=== PATIENT | male | born 1945 | race Caucasian/White ===

== ENCOUNTER 2019-02-11 09:56 | Inpatient (IN) | payer OTHER ==
[~2019-02-11] VITALS: Ht 182.9 cm; Wt 117.1 kg
[2019-02-11 10:33] LABS: BASOPHILS % (AUTO) 1.2 % (0.0-5.0); EOSINOPHILS % (AUTO) 3.9 % (0.0-8.0); HEMATOCRIT 45.7 % (42-54); LYMPHOCYTES % (AUTO) 12.6 % (21.0-51.0); MEAN CORPUSCULAR HEMOGLOBIN 30.1 pg (27.0-33.0); MEAN CORPUSCULAR HGB CONC 32.8 g/dL (32.0-36.0); MEAN CORPUSCULAR VOLUME 91.9 fL (79-99); MONOCYTES % (AUTO) 9.6 % (3.0-13.0); NEUTROPHILS % (AUTO) 72.7 % (40.0-77.0); PLATELET COUNT (AUTO) 171 K/uL (130-400); RED BLOOD CELL COUNT(AUTO) 4.97 MIL/uL (4.50-6.20); RED CELL DISTRIBUTION WIDTH 14.3 % (11.0-15.5); WHITE BLOOD COUNT (AUTO) 7.9 K/uL (4.8-10.8)
[2019-02-11 10:42] LABS: CREATININE 1.7 mg/dL (0.5-1.5); POTASSIUM 3.7 mmol/L (3.5-5.1)
[2019-02-11 10:45] LABS: INR 1.46 (0.85-1.15); PARTIAL THROMBOPLASTIN TIME 35.6 SEC (26.3-35.5); PROTHROMBIN TIME 15.2 SEC (9.6-11.6)
[2019-02-11 10:48] LABS: ALBUMIN 3.2 g/dL (3.5-5.0); BILIRUBIN,TOTAL 1.3 mg/dL (0.2-1.0); TOTAL PROTEIN, SERUM 6.3 g/dL (6.0-8.3)
[2019-02-11 10:53] LABS: TROPONIN I 0.1 ng/mL (0.00-0.06)
[2019-02-11 11:02] LABS: B-TYPE NATRIURETIC PEPTIDE 815 pg/mL (0-100)
[2019-02-11] MEDS ORDERED: FUROSEMIDE 10 MG/ML 2ML VIAL ONE (11:40)
[2019-02-11] MEDS ORDERED: ASPIRIN 325 MG TABLET ONE (11:40)
[2019-02-11] MEDS ORDERED: METOPROLOL TARTRATE 25 MG TAB ONE (13:21)
[2019-02-11] MEDS ORDERED: MORPHINE SULFATE 2 MG/ML 1ML SYG IV PRN (14:00)
[2019-02-11] MEDS ORDERED: HYDRALAZINE HCL 20 MG/ML VIAL IV PRN (14:00)
[2019-02-11] MEDS ORDERED: ONDANSETRON HCL 4 MG/2 ML VIAL IV PRN (14:00)
[2019-02-11] MEDS ORDERED: ACETAMINOPHEN 325 MG TAB PO PRN (14:00)
[2019-02-11] MEDS ORDERED: INSULIN HUMULIN R 100 UNIT/ML 3ML ONE (14:03)
[2019-02-11 16:55] VITALS: BP 137/103
--- NOTE | 2019-02-11 17:00 | NUR ---
ADMISSION RECEIVED PT FROM ER, AMBULATING FROM GURNEY TO BED, GAIT STEADY AND STRONG WITH STAND BY ASSIST, A&OX3, CALM COOPERATIVE AND DOES NOT APPEAR TO BE IN ANY DISTRESS NOR ANY NEURO DEFICITS. PT DENIES PAIN, DIZZINESS OR NAUSEA BUT DOES C/O DYSPNEA ON EXERTION. PT SITTING UP AT BEDSIDE, RESTING COMFORTABLY, CALL LIGHT WITHIN REACH.
[2019-02-11 19:00] VITALS: BP 125/84
--- NOTE | 2019-02-11 19:20 | NUR ---
Received report cardiology was consulted today and pt. is for stress test tomorrow.
[2019-02-11] MEDS: FUROSEMIDE 10 MG/ML 4ML VIAL IVP SCH (20:25)
[2019-02-11] MEDS: METOPROLOL TARTRATE 25 MG TAB PO SCH (20:26)
[2019-02-11] MEDS: INSULIN HUMULIN R 100 UNIT/ML 3ML SQ SCH (20:37)
[2019-02-11] MEDS ORDERED: FUROSEMIDE 40 MG TABLET PO SCH (21:00)
[2019-02-11 21:15] LABS: TROPONIN I 0.11 ng/mL (0.00-0.06)
[2019-02-11] MEDS ORDERED: LORAZEPAM 2 MG/ML 1 ML VIAL IVP PRN (21:15)
--- NOTE | 2019-02-11 21:40 | NUR ---
[facility] spoke to pt. regarding Halcion which is not available at this time and pt. agreed to have Ativan instead ,to keep him sleep.
[2019-02-11 23:00] VITALS: BP 105/73
--- NOTE | 2019-02-11 23:23 | NUR ---
Pt. said he found his sleeping pill in his bag and wants to know if its okay for him to take it.[facility] was called and notified and he said its okay.
--- NOTE | 2019-02-12 | NUR ---
Pt. kept NPO at this time,demonstrated understanding well.
[2019-02-12 02:22] LABS: HEMATOCRIT 47.5 % (42-54); MEAN CORPUSCULAR HEMOGLOBIN 29.9 pg (27.0-33.0); MEAN CORPUSCULAR VOLUME 90.8 fL (79-99); NUCLEATED RED BLOOD CELLS 0.1 % (0.0-0.19); PLATELET COUNT (AUTO) 154 K/uL (130-400); RED BLOOD CELL COUNT(AUTO) 5.23 MIL/uL (4.50-6.20); RED CELL DISTRIBUTION WIDTH 14.4 % (11.0-15.5); WHITE BLOOD COUNT (AUTO) 7.4 K/uL (4.8-10.8)
[2019-02-12 02:40] LABS: CREATININE 1.7 mg/dL (0.5-1.5)
[2019-02-12 02:55] LABS: TROPONIN I 0.08 ng/mL (0.00-0.06)
[2019-02-12 03:00] VITALS: BP 109/66
[2019-02-12] MEDS: INSULIN HUMULIN R 100 UNIT/ML 3ML SQ SCH ×4 (06:07→21:00)
[2019-02-12] MEDS: REGADENOSON 0.4 MG/5 ML PF SYG IVP SCH ×2 (06:30→15:51)
[2019-02-12] MEDS ORDERED: RIVA20TA PO (07:05)
[2019-02-12] MEDS ORDERED: LISI1TAB13 PO (07:05)
[2019-02-12] MEDS ORDERED: [UNRECOGNIZED DRUG - OTHER] PO (07:05)
[2019-02-12] MEDS ORDERED: [UNRECOGNIZED DRUG - OTHER] PO (07:05)
[2019-02-12] MEDS ORDERED: [UNRECOGNIZED DRUG - OTHER] PO ×2 (07:05)
[2019-02-12] MEDS ORDERED: METF850T PO (07:05)
[2019-02-12] MEDS ORDERED: SIMV20TA6 PO (07:05)
[2019-02-12] MEDS ORDERED: TRIA0.252 PO (07:07)
[2019-02-12 07:25] VITALS: BP 121/71
[2019-02-12] MEDS ORDERED: ENOXAPARIN SODIUM 30 MG/0.3 ML SQ SCH (09:00)
[2019-02-12] MEDS: METOPROLOL TARTRATE 25 MG TAB PO SCH ×2 (09:00→20:19)
[2019-02-12] MEDS: FAMOTIDINE/PF 20 MG/2 ML VIAL IV SCH (09:20)
[2019-02-12] MEDS: ASPIRIN 325 MG TABLET PO SCH (09:20)
[2019-02-12] MEDS: FUROSEMIDE 10 MG/ML 4ML VIAL IVP SCH ×2 (09:21→20:17)
[2019-02-12 11:08] VITALS: BP 139/94
[2019-02-12 11:24] LABS: TROPONIN I 0.1 ng/mL (0.00-0.06)
--- NOTE | 2019-02-12 15:02 | NUR ---
DC PLAN VISITED WITH PATIENT. PATIENT LIVES WITH SPOUSE. INDEPENDENT ABLE TO PERFORM ADL'S. PATIENT HAS NO SERVICES OR DME'S. FEELS SAFE TO RETURN HOME. GOT PALLAVI PER MEDICAL RECORDS SO THAT RECORDS CAN BE EMAILED TO PATIENT AFTER DISCHARGE. PALLAVI SIGNED AND ON CHART. Addendum: 02/12/19 at 1503 by SETH JI RN CM Amended: Links added.
[2019-02-12 15:34] VITALS: BP 144/74
[2019-02-12 20:13] VITALS: BP 131/85
[2019-02-13] VITALS: BP 114/67
[2019-02-13 03:30] VITALS: BP 131/56
[2019-02-13 03:59] LABS: MEAN CORPUSCULAR HEMOGLOBIN 30.5 pg (27.0-33.0); MEAN CORPUSCULAR HGB CONC 33.3 g/dL (32.0-36.0); MEAN CORPUSCULAR VOLUME 91.6 fL (79-99); NUCLEATED RED BLOOD CELLS 0.1 % (0.0-0.19); PLATELET COUNT (AUTO) 184 K/uL (130-400); RED BLOOD CELL COUNT(AUTO) 5.02 MIL/uL (4.50-6.20); RED CELL DISTRIBUTION WIDTH 14.3 % (11.0-15.5); WHITE BLOOD COUNT (AUTO) 8.1 K/uL (4.8-10.8)
[2019-02-13 04:03] LABS: HEMOGLOBIN A1C 7.6 % (4.0-6.0)
[2019-02-13 04:18] LABS: B-TYPE NATRIURETIC PEPTIDE 334 pg/mL (0-100)
[2019-02-13 04:23] LABS: CREATININE 1.6 mg/dL (0.5-1.5); POTASSIUM 3.1 mmol/L (3.5-5.1); TROPONIN I 0.08 ng/mL (0.00-0.06)
[2019-02-13] MEDS: FUROSEMIDE 10 MG/ML 4ML VIAL IVP SCH (04:32)
[2019-02-13] MEDS: INSULIN HUMULIN R 100 UNIT/ML 3ML SQ SCH ×4 (05:38→21:00)
[2019-02-13 07:30] VITALS: BP 144/80
[2019-02-13 09:42] LABS: HEMATOCRIT 50.4 % (42-54); MEAN CORPUSCULAR HGB CONC 32.5 g/dL (32.0-36.0); MEAN CORPUSCULAR VOLUME 92.2 fL (79-99); NUCLEATED RED BLOOD CELLS 0.1 % (0.0-0.19); PLATELET COUNT (AUTO) 200 K/uL (130-400); RED BLOOD CELL COUNT(AUTO) 5.47 MIL/uL (4.50-6.20); RED CELL DISTRIBUTION WIDTH 14.7 % (11.0-15.5); WHITE BLOOD COUNT (AUTO) 8.6 K/uL (4.8-10.8)
[2019-02-13] MEDS: ASPIRIN 325 MG TABLET PO SCH (09:45)
[2019-02-13] MEDS: SPIRONOLACTONE 25 MG TAB PO SCH (09:46)
[2019-02-13] MEDS: LISINOPRIL 2.5 MG TABLET PO SCH (09:46)
[2019-02-13] MEDS: METOPROLOL TARTRATE 25 MG TAB PO SCH ×2 (09:46→19:38)
[2019-02-13] MEDS: FAMOTIDINE/PF 20 MG/2 ML VIAL IV SCH (09:47)
[2019-02-13] MEDS: POTASSIUM CHLORIDE 20 MEQ ERTAB PO SCH ×2 (09:47→16:04)
[2019-02-13 09:49] LABS: CREATININE 1.5 mg/dL (0.5-1.5); POTASSIUM 3.2 mmol/L (3.5-5.1)
[2019-02-13 10:00] LABS: INR 1.18 (0.85-1.15); PARTIAL THROMBOPLASTIN TIME 27.6 SEC (26.3-35.5); PROTHROMBIN TIME 12.3 SEC (9.6-11.6)
[2019-02-13 11:44] VITALS: BP 130/89
[2019-02-13 15:17] VITALS: BP 128/73
[2019-02-13] MEDS ORDERED: POTASSIUM CHLORIDE 20 MEQ ERTAB PO ONE (16:00)
[2019-02-13 20:26] VITALS: BP 139/73
[2019-02-14] VITALS (7 sets, daily range): BP systolic 110–136; BP diastolic 64–92
[2019-02-14 04:09] LABS: CREATININE 1.6 mg/dL (0.5-1.5); POTASSIUM 3.6 mmol/L (3.5-5.1)
[2019-02-14] MEDS ORDERED: SODIUM CHLORIDE 0.9% 500ML 500 ML IV SCH (06:00)
[2019-02-14] MEDS: INSULIN HUMULIN R 100 UNIT/ML 3ML SQ SCH ×4 (06:36→21:17)
[2019-02-14] MEDS: SPIRONOLACTONE 25 MG TAB PO SCH (08:53)
[2019-02-14] MEDS: ASPIRIN 325 MG TABLET PO SCH (08:54)
[2019-02-14] MEDS: METOPROLOL TARTRATE 25 MG TAB PO SCH ×2 (08:54→21:13)
[2019-02-14] MEDS: FAMOTIDINE/PF 20 MG/2 ML VIAL IV SCH (08:55)
[2019-02-14] MEDS: LISINOPRIL 2.5 MG TABLET PO SCH (08:55)
--- NOTE | 2019-02-14 16:14 | NUR ---
DC PLAN PATIENT PENDING LIFE VEST TO BE SET UP. DR. NEGRON TO FILL SCRIPT AFTER HEART CATH. CALLED PATIENT STILL PENDING TO BE TAKEN DOWN FOR PROCEDURE.
--- NOTE | 2019-02-14 19:40 | NUR ---
Received bedside report ,pt. is for left heart cath already scheduled as per report.Pt. is aware about the procedure and instructed to be NPO postmidnight and verbalized understanding, Consent already ready in the chart as per report.
[2019-02-15] VITALS (13 sets, daily range): BP systolic 97–148; BP diastolic 62–91
--- NOTE | 2019-02-15 | NUR ---
Pt. kept NPO at this time.
[2019-02-15 03:58] LABS: CREATININE 1.5 mg/dL (0.5-1.5); POTASSIUM 3.3 mmol/L (3.5-5.1)
[2019-02-15] MEDS: INSULIN HUMULIN R 100 UNIT/ML 3ML SQ SCH ×4 (06:28→20:37)
--- NOTE | 2019-02-15 07:35 | NUR ---
Pt. remained NPO for cardiac catheterization today.Report given to incoming NOD using SBAR all questions answered.Pt. has no s/s hypoglycemia.Remained alert and coherent
[2019-02-15] MEDS: METOPROLOL TARTRATE 25 MG TAB PO SCH ×2 (08:07→20:37)
[2019-02-15] MEDS: FAMOTIDINE/PF 20 MG/2 ML VIAL IV SCH (08:07)
[2019-02-15] MEDS: LISINOPRIL 2.5 MG TABLET PO SCH (09:00)
[2019-02-15] MEDS: SPIRONOLACTONE 25 MG TAB PO SCH (09:00)
[2019-02-15] MEDS: ASPIRIN 325 MG TABLET PO SCH (09:00)
--- NOTE | 2019-02-15 11:00 | NUR ---
CALLED [facility] AND SPOKE WITH CARLO SANTORO. HE SAID THAT PT IS SCHEDULED FOR 11AM HEART CATH WITH DR. MARK BUT [facility] TEAM WERE CALLED FOR IR PROCEDURE AT THIS TIME. STEPHANI FUENTES WAS PAGED AND HAS NOT CALLED BACK. CARLO SANTORO SAID THAT HE WILL GIVE ME A CALL ONCE HE RECEIVES WORD FROM DR. MARK OR STEPHANI FUENTES.
--- NOTE | 2019-02-15 11:50 | NUR ---
SPOKE WITH CARLO SANTORO AND SAID THAT DR. MARK HAS NOT CALLED BACK. PATIENT MAY BE TAKEN TO EMERGENCY VETERINARY TECHNICIAN LATE THIS AFTERNOON.
--- NOTE | 2019-02-15 13:04 | NUR ---
PT VOICED CONCERNS ABOUT HIS PROLONGED HOSPITAL STAY AND HIS TRAVEL INSURANCE. I SPOKE WITH ATTENDANT CHILD ACTIVITY MARILYN HAWTHORNE ABOUT THIS.
--- NOTE | 2019-02-15 15:33 | NUR ---
STEPHANI FUENTES IS IN TO SEE PATIENT.
[2019-02-15] MEDS ORDERED: BIVALIRUDIN 250 MG/VIAL IV ONE ×2 (16:13→16:51)
[2019-02-15] MEDS ORDERED: NITROGLYCERIN 5 MG/ML 10 ML VIAL IV ONE (16:14)
[2019-02-15] MEDS ORDERED: IOHEXOL 350 MG/ML 100ML INFUS..BTL IV ONE ×3 (16:14→17:22)
[2019-02-15] MEDS ORDERED: IOHEXOL-350 50ML VIAL IV ONE (16:14)
[2019-02-15] MEDS ORDERED: LIDOCAINE HCL 2% 20ML ONE (16:14)
[2019-02-15] MEDS ORDERED: POTASSIUM CHLORIDE 20 MEQ ERTAB PO PRN (16:15)
[2019-02-15] MEDS ORDERED: POTASSIUM CHLORIDE 10MEQ/100ML 100 ML IV PRN (16:15)
[2019-02-15] MEDS ORDERED: LIDOCAINE HCL-MPF 1% 2ML VIAL IVP PRN (16:15)
--- NOTE | 2019-02-15 16:36 | NUR ---
PATIENT IS TAKEN DOWN TO CATHODIC PROTECTION TECHNICIAN VIA BED BY CARLO SANTORO AND EMMIE SANTORO.
[2019-02-15] MEDS ORDERED: ASPIRIN 325MG EC TAB 325 MG TABLET.DR PO ONE (18:03)
[2019-02-15] MEDS ORDERED: CLOPIDOGREL BISULFATE 300 MG TAB ONE (18:03)
[2019-02-15] MEDS ORDERED: SODIUM CHLORIDE 0.9% 1000ML 1,000 ML IV SCH (18:04)
[2019-02-15] MEDS ORDERED: NITROGLYCERIN 50 MG/D5% WATER 1 BOT IV PRN (18:15)
[2019-02-15] MEDS ORDERED: CLOPIDOGREL BISULFATE 300 MG TAB PO SCH (18:15)
--- NOTE | 2019-02-15 18:30 | NUR ---
RECEIVED PATIENT FROM CARE TEAM ASSISTANT S/P LEFT HEART CATH WITH STENT PLACEMENT BY DR. MARK. RIGHT GROIN DRESSING IS CLEAN, DRY, AND INTACT. SITE IS SOFT ON PALPATION. NO HEMATOMA, BLEEDING, NOR OOZING NOTED TO SITE. LOWER EXTREMITY IS WARM. PEDAL PULSE IS STRONG. PATIENT TO REMAIN ON BEDREST FOR [address] MARK. ACTIVITY RESTRICTIONS DISCUSSED WITH HIM AND HIS . BOTH VERBALIZED UNDERSTANDING. VITAL SIGNS TAKEN AND WILL BE MONITORED PER PROTOCOL. EKG DONE ORDERED.
--- NOTE | 2019-02-15 20:30 | NUR ---
RIGHT GROIN SOFT, DRESSING DRY AND INTACT. ASSISTED PT TO REPOSITION IN BED. INSTRUCTED PT TO CALL FOR ASSISTANCE WHEN WANTING TO GET OUT OF BED. VERBALIZED UNDERSTANDING.
--- NOTE | 2019-02-15 22:45 | NUR ---
PT STATED HE NEEDS TO TAKE HIS HALCION MED FROM HOME. CHECKED FOR ORDER TO USE HOME MEDICATION. ORDER WRITTEN ON 02/11/19. PATIENT TOOK HALCION 0.25MG PO.
--- NOTE | 2019-02-15 23:00 | NUR ---
K+ 3.3 (RESULT FROM EARLIER THIS EVENING)---INITIATED HYPOKALEMIA PROTOCOL. WILL GIVE 3 DOSES OF KCL 10 MEQ EVERY 2 HOURS.
[2019-02-15] MEDS: POTASSIUM CHLORIDE 10% ELIXIR 20 MEQ/15 ML UDCUP PO PRN (23:17)
[2019-02-16] MEDS: POTASSIUM CHLORIDE 10% ELIXIR 20 MEQ/15 ML UDCUP PO PRN ×2 (02:09→03:10)
[2019-02-16 03:00] VITALS: BP 124/60
[2019-02-16 03:46] LABS: BASOPHILS % (AUTO) 1.2 % (0.0-5.0); EOSINOPHILS % (AUTO) 5.2 % (0.0-8.0); LYMPHOCYTES % (AUTO) 20.2 % (21.0-51.0); MEAN CORPUSCULAR HEMOGLOBIN 30.4 pg (27.0-33.0); MEAN CORPUSCULAR HGB CONC 32.8 g/dL (32.0-36.0); MEAN CORPUSCULAR VOLUME 92.8 fL (79-99); MONOCYTES % (AUTO) 12.5 % (3.0-13.0); NEUTROPHILS % (AUTO) 60.9 % (40.0-77.0); PLATELET COUNT (AUTO) 173 K/uL (130-400); RED BLOOD CELL COUNT(AUTO) 5.28 MIL/uL (4.50-6.20); RED CELL DISTRIBUTION WIDTH 14.4 % (11.0-15.5); WHITE BLOOD COUNT (AUTO) 7.9 K/uL (4.8-10.8)
[2019-02-16 03:58] LABS: CREATININE 1.5 mg/dL (0.5-1.5); POTASSIUM 3.8 mmol/L (3.5-5.1)
[2019-02-16] MEDS: INSULIN HUMULIN R 100 UNIT/ML 3ML SQ SCH ×2 (06:15→12:06)
[2019-02-16 07:25] VITALS: BP 97/63
[2019-02-16] MEDS: SPIRONOLACTONE 25 MG TAB PO SCH (08:39)
[2019-02-16] MEDS: ASPIRIN 325 MG TABLET PO SCH (08:40)
[2019-02-16] MEDS: FAMOTIDINE/PF 20 MG/2 ML VIAL IV SCH (08:40)
[2019-02-16] MEDS: LISINOPRIL 2.5 MG TABLET PO SCH (08:40)
[2019-02-16] MEDS: METOPROLOL TARTRATE 25 MG TAB PO SCH (08:40)
[2019-02-16] MEDS ORDERED: PANTOPRAZOLE SODIUM 40 MG TABLET.DR PO SCH (09:00)
[2019-02-16] MEDS ORDERED: TRIAZOLAM 0.25 MG PO PRN (09:00)
[2019-02-16] MEDS ORDERED: ASPIRIN 81MG TAB.CHEW PO SCH (09:00)
[2019-02-16] MEDS ORDERED: CLOPIDOGREL BISULFATE 75 MG TAB PO SCH (09:00)
[2019-02-16 11:31] VITALS: BP 123/89
[2019-02-16] MEDS ORDERED: TRIA0.252 PO (15:13)
--- NOTE | 2019-02-16 16:09 | NUR ---
cm note spoke to rep Evelio from [employer]- [phone]. and updated her that information has been faxed to [employer], regarding pt need for life vest. also informed that pt states he will be staying temporarilly at [facility] [facility] [phone]. for about aweek. then traveling back to [facility] as listed on face sheet. and eventually approximately about a month later will travel back to [facility]. states that she can work with this pt on the Life vest, but needs to get approved first by insurance. informed evelio that pt is requesting to go home today. and Arnold Carlos in agreement for him to dc even if not approved for life vest yet. pt was informed that there is a possibility that they may not approve the life vest, but that would be informed of this as well. call made to DESTINI reina to update on above, and made aware that there is always possibility may not get approved for life vest, but they would notify his office. he verbalizes understanding.
[2019-02-16] MEDS ORDERED: ASPI-1005 PO (16:20)
[2019-02-16] MEDS ORDERED: ATOR40TA71 PO (16:20)
[2019-02-17] MEDS ORDERED: ATORVASTATIN CALCIUM 40 MG TABLET PO SCH (09:00)
== END 2019-02-16 19:00 | disposition home or self-care (01) | DRG 246 ==
LOC: EDH 09:56 → EDHIP 11:52 → 2AH 16:42
PROVIDERS: ADMIT Hospitalist; ATTEND Hospitalist
PROC: 4A023N7 Measurement of Cardiac Sampling and Pressure, Left Heart, Percutaneous Approach (ICD-10-PCS; principal; 2019-02-11)
PROC: 027034Z Dilation of Coronary Artery, One Artery with Drug-eluting Intraluminal Device, Percutaneous Approach (ICD-10-PCS; 2019-02-11)
PROC: B2111ZZ Fluoroscopy of Multiple Coronary Arteries using Low Osmolar Contrast (ICD-10-PCS; 2019-02-11)
PROC: B2151ZZ Fluoroscopy of Left Heart using Low Osmolar Contrast (ICD-10-PCS; 2019-02-11)
DX: I13.0 Hypertensive heart and chronic kidney disease with heart failure and stage 1 through stage 4 chronic kidney disease, or unspecified chronic kidney disease (principal); I50.23 Acute on chronic systolic (congestive) heart failure; N17.9 Acute kidney failure, unspecified; I48.92 Unspecified atrial flutter; I24.8 Other forms of acute ischemic heart disease; I48.91 Unspecified atrial fibrillation; E11.21 Type 2 diabetes mellitus with diabetic nephropathy; E11.22 Type 2 diabetes mellitus with diabetic chronic kidney disease; E66.9 Obesity, unspecified; G24.9 Dystonia, unspecified; I25.10 Atherosclerotic heart disease of native coronary artery without angina pectoris; I34.0 Nonrheumatic mitral (valve) insufficiency; I42.9 Cardiomyopathy, unspecified; N18.9 Chronic kidney disease, unspecified; Z68.35 Body mass index [BMI] 35.0-35.9, adult; Z95.818 Presence of other cardiac implants and grafts; Z95.5 Presence of coronary angioplasty implant and graft; Z79.01 Long term (current) use of anticoagulants
CPT/HCPCS: 36415; 71045; 78452; 80048; 80053; 82550; 82948; 83036; 83874; 83880; 84484; 85025; 85027; 85610; 85730; 93005; 93017; 93306; 93458; 96374; A9500; C1760; C1769; C1887; C1894; C9600; G0378; J0583; J1644; J1650; J1815; J1940; J2785; J3490; Q9967